=== PATIENT | female | born 1965 | race Asian ===

== ENCOUNTER 2016-07-29 07:57 | Inpatient (IN) | payer BC ==
[2016-07-25 20:13] LABS: BASOPHILS 0.5 %; BASOPHILS ABSOLUTE 0.03 10/3/uL (0.0-0.16); EOSINOPHILS 2.6 %; EOSINOPHILS ABSOLUTE 0.17 10/3/uL (0.0-0.53); HEMATOCRIT 33.8 % (36.0-48.0); HEMOGLOBIN 10.9 g/dL (12.0-16.0); IMMATURE GRANULOCYTES 0.2 %; IMMATURE GRANULOCYTES ABSOLUTE 0.01 10/3/uL (0.0-0.11); LYMPHOCYTES 43.4 %; LYMPHOCYTES ABSOLUTE 2.83 10/3/uL (0.67-4.30); MANUAL DIFF NO %; MEAN CORPUS HGB CONC 32.2 g/dL (32.0-36.0); MEAN CORPUSCULAR HEMOGLOB 29.1 pg (26.0-34.0); MEAN CORPUSCULAR VOLUME 90.1 fL (80-100); MONOCYTES 6.3 %; MONOCYTES ABSOLUTE 0.41 10/3/uL (0.21-1.20); NEUTROPHILS ABSOLUTE 3.07 10/3/uL (2.02-8.40); PLATELET COUNT 370 10/3/uL (150-400); RBC DISTRIBUTION WIDTH 13.6 % (12.0-16.0); RED CELL COUNT 3.75 10/6/uL (4.0-5.6); WHITE BLOOD CELLS 6.5 10/3/uL (4.5-10.5)
[2016-07-25 20:19] LABS: PARTIAL THROMBO TIME 30.3 SEC (22.5-37.2); PROTIME (NOT ORD) 12.8 SEC (12.0-14.5)
[2016-07-25 20:24] LABS: A/G RATIO 1.1 (0.7-1.9); ALBUMIN 3.7 G/DL (3.5-5.0); ALKALINE PHOSPHATASE 88 U/L (45-117); BUN (BLOOD UREA NITROGEN) 12 MG/DL (6-23); CALCIUM, SERUM 8.8 MG/DL (8.5-10.4); CHLORIDE, SERUM 105 MMOL/L (96-112); CO2 (CARBON DIOXIDE) 28 MMOL/L (24-34); CREATININE 0.57 MG/DL (0.55-1.02); GFR AFRICAN AMERICAN 126 ML/MIN (>=60); GFR NON AFRICAN AMERICAN 109 ML/MIN (>=60); GLOBULIN 3.5 G/DL (2.5-4.1); GLUCOSE, SERUM 98 MG/DL (60-99); SGOT(AST) 22 U/L (5-40); SGPT(ALT) 24 U/L (5-65); SODIUM, SERUM 142 MMOL/L (135-148); TOTAL BILIRUBIN 0.2 MG/DL (0-1.2); TOTAL PROTEIN 7.2 G/DL (6.0-8.5)
[2016-07-25 20:28] LABS: CEA 2.5 NG/ML; POTASSIUM, SERUM 4.5 MMOL/L (3.5-5.3)
--- NOTE | ~2016-07-29 | DS ---
Discharge Summary [facility] [address] [place]. [address] NAME: NANCY RAYMOND : 69 STATUS : DIS IN PAT#: [id number] AGE: 51 ADM/REG DATE : 07/29/16 MR#: [id number] REPORT SERV DATE: 08/09/16 DICTATED BY: SHARI BELTRAN III DATE: 08/08/16 REPORT STATUS : Draft TRANSCRIBED BY: MODOseas DATE: 08/08/16 Data Collection from hospitalization DISCHARGE DIAGNOSES: 1. 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 2. Endometriosis. CONSULTATIONS: None. PROCEDURES PERFORMED: 1. Laparoscopic resection of right colon and proximal transverse colon with resection of terminal ileum and primary ileocolonic anastomosis on 07/29/2016. 2. CT scan of the chest with contrast on 07/30/2016. PATHOLOGY: Terminal ileum and right colon, right colectomy - mucinous adenocarcinoma. Colon, additional transverse colon segment - minimal histologic changes. No tumor seen. MEDICATIONS: Tylenol PM one tablet at bedtime as needed, [place] 7.5/325 one tablet every eight hours as needed, melatonin 3 mg at bedtime as needed, and Zofran 4 mg every eight hours as needed. CONDITION AT DISCHARGE: Stable. DISPOSITION: The patient was discharged home on a soft, low-fat, low-residue diet with activities as instructed. She would follow up with me on 08/07/2016. HOSPITAL COURSE: This is a 51-year-old female who was recently found to have a large tumor in the hepatic flexure of the right colon. The patient had complained of an eight-month history of crampy abdominal pain. The pain was associated with bloating. She did have an episode of bright red blood per rectum seven days prior to this admission. Her pain was associated with a 25-pound weight loss over the past seven months. She recently had a colonoscopy, which revealed a large mass at the hepatic flexure. Biopsy showed this to be tubular villous adenoma, but based on the large size of the mass, it was suspected that this may be an invasive malignancy. Treatment options were discussed and it was elected to proceed with surgical intervention. She was admitted to the hospital for further evaluation and treatment. Upon admission, she was taken to the operating room where she underwent the above-mentioned procedure. She tolerated this well, and there were no complications. On postop day #1, she had no new complaints. She was alert and comfortable. She was afebrile. Clear liquids were started. The Thacker catheter was removed. She was evaluated by Physical Therapy. A CT scan of the chest with contrast was performed. There was an irregular soft tissue nodule - question whether this was inflammatory or neoplastic. There were no additional nodules. There was no hilar or mediastinal adenopathy. On postop day #2, she continued to do well. Her abdomen was soft. She remained afebrile. She was placed on full liquids. IV fluids were decreased. The [employer] was discontinued. Discharge planning was performed. On 08/01/2016, she complained of severe back pain. She was tolerating full liquids. She wanted to go home. She has not had a bowel movement. Discharge instructions were given. Discharge Summary [address] [address] NAME: NANCY RAYMOND : 69 STATUS : DIS IN PAT#: [id number] AGE: 51 ADM/REG DATE : 07/29/16 MR#: [id number] REPORT SERV DATE: 08/09/16 DICTATED BY: SHARI BELTRAN III DATE: 08/08/16 REPORT STATUS : Draft TRANSCRIBED BY: MODOseas DATE: 08/08/16 Due to her improved and stable condition, she was discharged home with the above-stated instructions. Information collected by: Bethany Mccracken I submit the above information as my discharge summary. JOSE/NATASHA Shari Beltran III, M.D. / [id number] CC: Shari Beltran III, M.D.
--- NOTE | ~2016-07-29 | OP ---
Record Of Operation [facility] [address] [place]. [address] NAME: NANCY RAYMOND : 69 STATUS : ADM IN PAT#: [id number] AGE: 51 ADM/REG DATE : 07/29/16 MR#: [id number] REPORT SERV DATE: 07/29/16 DICTATED BY: SHARI BELTRAN III DATE: 07/29/16 REPORT STATUS : Draft TRANSCRIBED BY: MODL DATE: 07/29/16 DATE OF PROCEDURE: 07/29/2016 PREOPERATIVE DIAGNOSIS: Mass of the hepatic flexure of the right colon, suspicious for malignancy. 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 PROCEDURE: Laparoscopic resection of right colon and proximal transverse colon with resection of terminal ileum and primary ileocolonic anastomosis. SURGEON: Shari Beltran M.D. ANESTHESIA: General with intubation. COMPLICATIONS: None. ESTIMATED BLOOD LOSS: 25 mL. SPECIMENS: Right colon and proximal transverse colon. LAP AND SPONGE COUNT: Correct x3. DRAINS: [place] in subcutaneous tissue. BRIEF HISTORY: This 51-year-old female presented with a recent colonoscopy showing a large mass at the hepatic flexure. Although the biopsy showed this to be a tubulovillous adenoma, this was a large mass with partial obstruction of the colon and suspicious radiographically and endoscopically for cancer. It was felt that laparoscopic resection of the involved portion of the colon, possible laparotomy, was indicated. This procedure, the risks, benefits, alternatives, including but not limited to the risk for bleeding, infection, enterotomy, injury to any abdominal structure, postop small bowel obstruction, ileus, incisional hernia, dehiscence, anastomotic leak, requiring reoperation with ileostomy, ureteral injury, possible need for laparotomy, and unforeseen complications including deep venous thrombosis, pulmonary embolus, myocardial infarction, stroke, pneumonia, and , were fully and completely explained to the patient and her family at length prior to surgery. The fact that this was a major operation with risk for major morbidity and mortality was explained as well as expected length of recovery with open laparoscopic procedures. The fact that she has had a previous colon resection, we increased the risk for enterotomy or surgical complications and possible need for laparotomy was explained. The patient and family had questions, which were answered. They fully understood the risks and agreed to surgery as planned. FINDINGS: The patient had a large obvious cancer of the hepatic flexure. There was no evidence for carcinomatosis or metastatic disease. Primary resection with clear margins and a primary anastomosis was performed. Record Of Operation [facility] [address] [place]. [address] NAME: NANCY RAYMOND : 69 STATUS : ADM IN [facility]#: [id number] AGE: 51 ADM/REG DATE : 07/29/16 MR#: [id number] REPORT SERV DATE: 07/29/16 DICTATED BY: SHARI BELTRAN III DATE: 07/29/16 REPORT STATUS : Draft TRANSCRIBED BY: NATASHA DATE: 07/29/16 DESCRIPTION OF PROCEDURE: After being properly identified and after discussing risks of surgery with the patient and family again in the preoperative area and after an appropriate bowel preparation at home, the patient was taken to the operating room and placed in the supine position on the operating room table. General anesthesia was administered. She was intubated without difficulty. A Thacker catheter was inserted. The abdomen was prepped and draped sterilely in the usual fashion. After an appropriate "time-out" per JCAHO standards, a small transverse incision was made just below the xiphoid process. The incision was continued through subcutaneous tissue. Hemostasis was controlled with cautery. The incision was continued through the fascia. The peritoneal cavity was entered under direct vision. A #10 balloon-tipped Origin trocar was placed under direct vision into the peritoneal cavity. The balloon was inflated. The abdominal cavity was then insufflated to about 13 mmHg with carbon dioxide. The laparoscope was placed through the trocar. There was noted to be a line of adhesions between the omentum and the underside of the abdominal wall beneath the previous midline incision, which extended from the pubis to the xiphoid process. A 5 mm trocar was then placed to the left of the midline, in the left lower quadrant, under direct vision with the laparoscope. An instrument was placed through this, and using sharp dissection, the adhesions between the omentum and the underside of the fascia were carefully divided. In this way, we were able to expose the upper abdomen and the right side of the abdomen. There was noted to be a loop of small bowel adherent to the fascia posteriorly in the lower abdomen. We were very careful and mindful of this. We took great care not to injure this bowel and it was not necessary to mobilize it because it was not interfering with our dissection. This loop of small bowel appeared to be densely adherent to the underside of the abdominal wall. This appeared to be a chronic process and it was felt that it was not necessary to separate this bowel from the abdominal wall. Another 5 mm trocar was then placed in the midline, midway between the umbilicus and pubis, under direct vision with the laparoscope. Finally, a supraumbilical 10 mm trocar was placed under direct vision with the laparoscope. Appropriate instruments were placed through the trocars. The abdomen was inspected. There was no evidence of carcinomatosis or peritoneal implants. We turned our attention to the right colon. The right colon was grasped and retracted medially. Using sharp dissection, peritoneal reflection of the right colon was divided from the along the line of Toldt, from the proximal colon to the hepatic flexure. The colo- hepatic ligament was divided. The tumor was identified at the hepatic flexure. It was identified as a mass, which we could visualize and palpate. It was not marked. After full mobilization of the hepatic flexure, a small right subcostal incision was made directly over the hepatic flexure. The incision was continued through subcutaneous tissue. Hemostasis was controlled with cautery. The incision was continued through all layers of fascia. The abdominal cavity was entered. The right colon was mobilized into the wound. The gallbladder appeared to be normal. The liver appeared to be normal with no evidence for carcinomatosis or metastatic disease. Record Of Operation [id number] [place]. [address] NAME: NANCY RAYMOND : 69 STATUS : ADM IN [facility]#: [id number] AGE: 51 ADM/REG DATE : 07/29/16 MR#: [id number] REPORT SERV DATE: 07/29/16 DICTATED BY: SHARI BELTRAN III DATE: 07/29/16 REPORT STATUS : Draft TRANSCRIBED BY: MODL DATE: 07/29/16 There was a large, hard, obvious malignancy, palpable in the hepatic flexure. We selected a point for division of the terminal ileum proximal to this junction with the colon. There appeared to be a previous anastomosis between the terminal ileum and the right colon. The patient had a history of a previous colon resection and appeared that a portion of the right colon had been removed with an anastomosis between the terminal ileum and the right colon. We selected a point for division of terminal ileum just proximal to this anastomosis. A LEIGHTON stapler was used about the ileum at this point. We then selected a point for division of the proximal transverse colon, beyond the tumor, and beyond the hepatic flexure. A LEIGHTON stapler used about the colon at this point. The mesentery to the right colon was then divided using Harmonic scalpel. This was done along the base of the mesentery so as to perform a correct oncologic dissection of the lymphovascular supply to the right colon. We identified the second and third portion of the duodenal. These were not encroached upon or injured. We also identified the right ureter, which was not encroached upon or injured. This way, the entire right colon was removed. It was sent to pathology and interpreted as containing the tumor with clear margins. In order to facilitate our anastomosis, we resected another 2 cm to 3 cm of the proximal transverse colon. This was sent separately for permanent biopsy and the distal end was marked with a suture. We then performed a [id number] anastomosis between the divided terminal ileum and midtransverse colon. This was performed by aligning the antimesenteric border of the small bowel and antimesenteric border of the colon with interrupted 3-0 silk sutures. A small opening was then made in the antimesenteric border of the small bowel and the corresponding antimesenteric border of the colon. A LEIGHTON stapler was placed through this and fired. The defect created by the stapler was closed with a TA-60 stapler. This staple line was oversewn with interrupted 3-0 silk sutures. The "crotch" anastomosis was secured with 3-0 silk sutures. Upon completion of this, the anastomosis was widely patent to palpation. It was not twisted or kinked in anyway and was not under any tension. The mesenteric defect was closed with a running 3-0 silk suture. The area was irrigated copiously with saline. Hemostasis was assured. The fascia at this incision was closed with a running looped #1 PDS suture in two layers. The subcutaneous tissue was closed with running 3-0 chromic suture and the skin was closed with running subcuticular 4-0 Monocryl stitch. All trocars were removed. The 10 mm trocar sites were closed by closing the fascia with interrupted 0 Vicryl sutures. The skin incisions were all closed with running subcuticular 4-0 Monocryl stitches. They were injected with 0.5% Marcaine. Dressings were applied. Anesthesia was reversed. The patient was taken recovery room in stable condition. She tolerated the procedure well. Her family was informed results of surgery. The patient will remain in the hospital for postoperative care. DARRIAN/NATASHA Shari Beltran III, M.D. Record Of Operation [address] [address] NAME: NANCY RAYMOND : 69 STATUS : ADM IN [facility]#: [id number] AGE: 51 ADM/REG DATE : 07/29/16 MR#: [id number] REPORT SERV DATE: 07/29/16 DICTATED BY: SHARI BELTRAN III DATE: 07/29/16 REPORT STATUS : Draft TRANSCRIBED BY: NATASHA DATE: 07/29/16 / [id number] CC: Shari Beltran III, M.D.
--- NOTE | ~2016-07-29 | PREOPHP ---
PreOp History and Physical [place] [facility] [place]. [address] NAME: NANCY RAYMOND : 69 STATUS : ADM IN PAT#: [id number] AGE: 51 ADM/REG DATE : 07/29/16 MR#: [id number] REPORT SERV DATE: 07/29/16 DICTATED BY: SHARI BELTRAN III DATE: 07/23/16 REPORT STATUS : Draft TRANSCRIBED BY: MODL DATE: 07/23/16 HISTORY OF PRESENT ILLNESS: This 51-year-old female comes to the operating for laparoscopic partial colectomy, possible laparotomy. The patient was recently found to have a large tumor in the hepatic flexure of the right colon. The patient complains of an eight-month history of crampy abdominal pain. This pain is associated with bloating. The patient has had an episode of bright red blood per rectum seven days ago. This pain has been associated with a 25-pound weight loss over the last seven months. The patient recently had a colonoscopy, which shows a large mass at the hepatic flexure. Biopsy shows this to be a tubular villous adenoma, but based on the large size of the mass, it is suspected this may be an invasive malignancy. The patient comes now for laparoscopic resection of the involved portion of the colon, possible laparotomy. PAST MEDICAL HISTORY: 1. History of a previous colon resection for endometriosis. 2. History of endometriosis. PAST SURGICAL HISTORY: Includes partial colectomy, hysterectomy, and appendectomy. FAMILY HISTORY: Positive for gastric cancer. SOCIAL HISTORY: No history of tobacco or alcohol use. ALLERGIES: NONE. REVIEW OF SYSTEMS: Other than the above, the patient's 14-point review of systems is unremarkable. OBJECTIVE PHYSICAL EXAM: GENERAL: Reveals a thin female in no acute distress. She is alert and oriented x3. VITAL SIGNS: Blood pressure 99/64, pulse 81, temperature 98.3. HEENT: Unremarkable. Cranial nerves 2 through 12 were normal. LUNGS: Clear. CARDIAC: Normal. ABDOMEN: Soft and nontender. No masses. EXTREMITIES: Normal with no edema. LABORATORY DATA: Recent CT scan of the abdomen and pelvis shows a nodule at the left lung base, for which a three-month CT scan followup is recommended. There is noted to be a mass in the ascending colon close to the hepatic flexure. This is an apple core type lesion in the mid ascending colon. There is no evidence for metastatic disease. Biopsy of this mass shows a tubulovillous adenoma ulcerated and fragmented representing superficial fragments. Recent colonoscopy shows a large ulcerated circumferential tumor in the ascending colon. PreOp History and Physical [address] [place]. [address] NAME: NANCY RAYMOND : 69 STATUS : ADM IN PAT#: [id number] AGE: 51 ADM/REG DATE : 07/29/16 MR#: [id number] REPORT SERV DATE: 07/29/16 DICTATED BY: SHARI BELTRAN III DATE: 07/23/16 REPORT STATUS : Draft TRANSCRIBED BY: NATASHA DATE: 07/23/16 ASSESSMENT: 1. A 51-year-old female with right colon mass, probable malignancy. 2. Previous history of partial colon resection, of uncertain location, related to endometrial disease in the past. PLAN: The patient comes to the operating room now for laparoscopic resection of the involved portion of the right colon, possible laparotomy. This procedure, the risks, benefits, and alternatives, including, but not limited to the risk for bleeding, infection, enterotomy, injury to any abdominal structure, postop small bowel obstruction, ileus, incisional hernia, dehiscence, anastomotic leak requiring reoperation with ileostomy or colostomy, ureteral injury, possible need for laparotomy, and unforeseen complications including deep venous thrombosis, pulmonary embolus, myocardial infarction, stroke, pneumonia, and , have been fully and completely explained to the patient and family at length prior to surgery. The fact that this is a major operation with risk for major morbidity and mortality has been explained. The expected length of recovery with both open and laparoscopic procedures has been explained. The fact that she has increased risk for possible need for laparotomy due to her previous abdominal surgery has been explained. The patient's questions have been answered. She clearly understands the risks and agrees to surgery as planned. DARRIAN/NATASHA Shari Beltran III, M.D. / [id number]
[~2016-07-29 07:57] MED LIST: MELA3 PO; TYLENOL PM PO
[2016-07-30 06:30] LABS: BASOPHILS 0 %; EOSINOPHILS 0 %; HEMATOCRIT 29.5 % (36.0-48.0); IMMATURE GRANULOCYTES 0.3 %; IMMATURE GRANULOCYTES ABSOLUTE 0.05 10/3/uL (0.0-0.11); LYMPHOCYTES 8.5 %; LYMPHOCYTES ABSOLUTE 1.32 10/3/uL (0.67-4.30); MANUAL DIFF NO %; MEAN CORPUS HGB CONC 33.9 g/dL (32.0-36.0); MEAN CORPUSCULAR HEMOGLOB 29.5 pg (26.0-34.0); MEAN PLATELET VOLUME 9.4 fL (9.2-13.0); MONOCYTES ABSOLUTE 0.93 10/3/uL (0.21-1.20); NEUTROPHILS 85.2 %; NEUTROPHILS ABSOLUTE 13.23 10/3/uL (2.02-8.40); PLATELET COUNT 294 10/3/uL (150-400); RBC DISTRIBUTION WIDTH 13.2 % (12.0-16.0); RED CELL COUNT 3.39 10/6/uL (4.0-5.6); WHITE BLOOD CELLS 15.5 10/3/uL (4.5-10.5)
[2016-07-30 06:46] LABS: CHLORIDE, SERUM 101 MMOL/L (96-112); CO2 (CARBON DIOXIDE) 25 MMOL/L (24-34); CREATININE 0.64 MG/DL (0.55-1.02); GFR AFRICAN AMERICAN 121 ML/MIN (>=60); GFR NON AFRICAN AMERICAN 105 ML/MIN (>=60); POTASSIUM, SERUM 3.8 MMOL/L (3.5-5.3); SGOT(AST) 23 U/L (5-40); SGPT(ALT) 26 U/L (5-65); SODIUM, SERUM 136 MMOL/L (135-148); TOTAL BILIRUBIN 0.5 MG/DL (0-1.2); TOTAL PROTEIN 5.8 G/DL (6.0-8.5)
[2016-07-30 06:47] LABS: A/G RATIO 0.9 (0.7-1.9); ALBUMIN 2.7 G/DL (3.5-5.0); ALKALINE PHOSPHATASE 52 U/L (45-117); BUN (BLOOD UREA NITROGEN) 5 MG/DL (6-23); CALCIUM, SERUM 7.7 MG/DL (8.5-10.4); GLOBULIN 3.1 G/DL (2.5-4.1); GLUCOSE, SERUM 156 MG/DL (60-99)
[2016-07-31 06:21] LABS: BASOPHILS 0 %; EOSINOPHILS 0.1 %; EOSINOPHILS ABSOLUTE 0.01 10/3/uL (0.0-0.53); HEMATOCRIT 28.7 % (36.0-48.0); HEMOGLOBIN 9.8 g/dL (12.0-16.0); IMMATURE GRANULOCYTES 0.2 %; IMMATURE GRANULOCYTES ABSOLUTE 0.02 10/3/uL (0.0-0.11); LYMPHOCYTES 15.9 %; LYMPHOCYTES ABSOLUTE 1.76 10/3/uL (0.67-4.30); MEAN CORPUS HGB CONC 34.1 g/dL (32.0-36.0); MEAN CORPUSCULAR VOLUME 87.8 fL (80-100); MEAN PLATELET VOLUME 9.3 fL (9.2-13.0); MONOCYTES 8.1 %; MONOCYTES ABSOLUTE 0.89 10/3/uL (0.21-1.20); NEUTROPHILS 75.7 %; NEUTROPHILS ABSOLUTE 8.37 10/3/uL (2.02-8.40); PLATELET COUNT 281 10/3/uL (150-400); RBC DISTRIBUTION WIDTH 13.5 % (12.0-16.0); RED CELL COUNT 3.27 10/6/uL (4.0-5.6); WHITE BLOOD CELLS 11.1 10/3/uL (4.5-10.5)
[2016-07-31 06:22] LABS: MANUAL DIFF NO %
[2016-07-31 06:37] LABS: BUN (BLOOD UREA NITROGEN) 3 MG/DL (6-23); CALCIUM, SERUM 8.2 MG/DL (8.5-10.4); CHLORIDE, SERUM 104 MMOL/L (96-112); CO2 (CARBON DIOXIDE) 29 MMOL/L (24-34); CREATININE 0.54 MG/DL (0.55-1.02); GFR AFRICAN AMERICAN 128 ML/MIN (>=60); GFR NON AFRICAN AMERICAN 111 ML/MIN (>=60); POTASSIUM, SERUM 3.9 MMOL/L (3.5-5.3); SODIUM, SERUM 139 MMOL/L (135-148)
[2016-07-31 06:38] LABS: GLUCOSE, SERUM 104 MG/DL (60-99)
[2016-08-01] MEDS ORDERED: ZOFRAN4 PO (09:25)
[2016-08-01] MEDS ORDERED: NORCO1 TA2 PO (09:26)
[2016-08-01 09:48] LABS: BASOPHILS 0 %; EOSINOPHILS 0 %; HEMATOCRIT 31.5 % (36.0-48.0); HEMOGLOBIN 10.6 g/dL (12.0-16.0); IMMATURE GRANULOCYTES 0.1 %; IMMATURE GRANULOCYTES ABSOLUTE 0.01 10/3/uL (0.0-0.11); LYMPHOCYTES 9.9 %; LYMPHOCYTES ABSOLUTE 0.89 10/3/uL (0.67-4.30); MANUAL DIFF NO %; MEAN CORPUS HGB CONC 33.7 g/dL (32.0-36.0); MEAN CORPUSCULAR HEMOGLOB 29.5 pg (26.0-34.0); MEAN CORPUSCULAR VOLUME 87.7 fL (80-100); MEAN PLATELET VOLUME 9.6 fL (9.2-13.0); MONOCYTES 4.2 %; MONOCYTES ABSOLUTE 0.38 10/3/uL (0.21-1.20); NEUTROPHILS 85.8 %; NEUTROPHILS ABSOLUTE 7.69 10/3/uL (2.02-8.40); PLATELET COUNT 318 10/3/uL (150-400); RBC DISTRIBUTION WIDTH 13.5 % (12.0-16.0); RED CELL COUNT 3.59 10/6/uL (4.0-5.6)
[2016-08-01 10:02] LABS: BUN (BLOOD UREA NITROGEN) 6 MG/DL (6-23); CALCIUM, SERUM 8.7 MG/DL (8.5-10.4); CHLORIDE, SERUM 103 MMOL/L (96-112); CO2 (CARBON DIOXIDE) 29 MMOL/L (24-34); CREATININE 0.52 MG/DL (0.55-1.02); GFR AFRICAN AMERICAN 130 ML/MIN (>=60); GFR NON AFRICAN AMERICAN 112 ML/MIN (>=60); POTASSIUM, SERUM 4.1 MMOL/L (3.5-5.3); SODIUM, SERUM 138 MMOL/L (135-148)
[2016-08-01 10:03] LABS: GLUCOSE, SERUM 138 MG/DL (60-99)
[2016-12-04] MEDS ORDERED: PROTONIX PO (08:38)
[2016-12-10] MEDS ORDERED: PERCOCET 7.5/321 TAB PO (08:08)
== END 2016-08-01 10:29 | disposition home or self-care (01) | DRG 331 ==
LOC: SDC/OF 07:57 → PACU 12:41 → 5SO 14:13
PROVIDERS: Surgery
PROC: 0DBL4ZZ Excision of Transverse Colon, Percutaneous Endoscopic Approach (ICD-10-PCS; 2016-07-29)
PROC: 0DBK4ZZ Excision of Ascending Colon, Percutaneous Endoscopic Approach (ICD-10-PCS; principal; 2016-07-29 10:15)
DX: C18.2 Malignant neoplasm of ascending colon (principal); Z80.0 Family history of malignant neoplasm of digestive organs; Z90.49 Acquired absence of other specified parts of digestive tract; Z98.890 Other specified postprocedural states; Z90.710 Acquired absence of both cervix and uterus
CPT/HCPCS: 36415; 71020; 71260; 80048; 80053; 82378; 85025; 85610; 85730; 86850; 86900; 86901; 88304; 88307; 88309; 88341; 88342; 93005; 97161-GP; A9270-GY; C9113; J0690; J2250; J2270; J2405; J2710; J2795; J3010; Q9967

== ENCOUNTER 2016-08-02 04:24 | Inpatient (IN) | payer BC ==
--- NOTE | ~2016-08-02 | HP ---
History And Physical [place] [address] [place]. [address] NAME: NANCY RAYMOND : 69 STATUS : ADM Cristopher PAT#: [id number] AGE: 51 ADM/REG DATE : 08/02/16 MR#: [id number] REPORT SERV DATE: 08/03/16 DICTATED BY: SHARI BELTRAN III DATE: 08/03/16 REPORT STATUS : Draft TRANSCRIBED BY: MODL DATE: 08/03/16 DATE OF ADMISSION: 08/02/2016 HISTORY OF PRESENT ILLNESS: This 51-year-old female was admitted to the hospital emergently with nausea and vomiting. The patient complains of a one-day history of nausea and vomiting. These symptoms became progressively worse. The patient presented to the emergency room, and was found to have evidence for an ileus or partial small bowel obstruction. An NG tube was placed, and she feels much better. The patient is status post a laparoscopic right colectomy performed for a large right colon cancer. This surgery was performed on 07/29/2016. The patient's postoperative course was quick and uneventful. On the day of discharge, she was tolerating diet well and passing stool. The patient's symptoms began in the day of admission. PAST MEDICAL HISTORY: 1. History of right colon cancer, stage IIA, status post laparoscopic right colectomy performed on 07/29/2016. 2. History of anemia related to #1. 3. History of endometriosis. 4. History of previous colon resection for endometriosis. FAMILY HISTORY: Positive for gastric cancer. SOCIAL HISTORY: No history of tobacco or alcohol use. The patient is . She lives locally. ALLERGIES: NONE. MEDICATIONS: As per the medication list. REVIEW OF SYSTEMS: The patient's 14-point review of systems was otherwise unremarkable. PHYSICAL EXAMINATION: GENERAL: This is a female, in no acute distress. She is alert and oriented x3. VITAL SIGNS: Blood pressure 96/56, temperature 98.1, and pulse 79. HEENT: Unremarkable. Cranial nerves 2 through 12 are normal. LUNGS: Clear. CARDIAC: Unremarkable. ABDOMEN: Soft, slightly distended. She has a well-healed incision in the upper abdomen. EXTREMITIES: Normal with no edema. LABORATORY DATA: CT scan of the abdomen and pelvis which I reviewed shows evidence for partial small bowel obstruction versus ileus. The patient's electrolytes are normal. History And Physical [address] [place]. [address] NAME: NANCY RAYMOND : 69 STATUS : ADM Cristopher PAT#: [id number] AGE: 51 ADM/REG DATE : 08/02/16 MR#: [id number] REPORT SERV DATE: 08/03/16 DICTATED BY: SHARI BELTRAN III DATE: 08/03/16 REPORT STATUS : Draft TRANSCRIBED BY: NATASHA DATE: 08/03/16 ASSESSMENT: 1. 51-year-old female with probable postop ileus. 2. Status post laparoscopic right colectomy performed for a stage IIA right colon cancer. PLAN: The patient will be admitted and star on parenteral fluids, bowel rest, and NG suction. I have discussed this with the patient and her family. I have explained to the patient and the family that about 80% of time these will resolve without operative treatment. Occasionally; however, surgical intervention will be required if it does not respond to nonoperative management including several days of bowel rest with NG suction. This plan has been explained to the patient and her family. Their questions have been answered. They understand and agree to this as planned. DARRIAN/NATASHA Shari Beltran III, M.D. / [id number] CC: Shari Beltran III, M.D.
--- NOTE | ~2016-08-02 | DS ---
Discharge Summary [facility] [address] [place] [place]. [address] NAME: NANCY RAYMOND : 69 STATUS : DIS IN PAT#: [id number] AGE: 51 ADM/REG DATE : 08/02/16 MR#: [id number] REPORT SERV DATE: 08/16/16 DICTATED BY: SHARI BELTRAN III DATE: 08/15/16 REPORT STATUS : Draft TRANSCRIBED BY: MODOseas DATE: 08/15/16 Data Collection from hospitalization DISCHARGE DIAGNOSES: 1. Ileus - resolving - or partial small bowel obstruction. 2. History of right colon cancer stage IIA. 3. History of anemia. 4. History of endometriosis. CONSULTATIONS: None. PROCEDURES PERFORMED: CT scan of the abdomen and pelvis without contrast on 08/02/2016. MEDICATIONS: ( ) ( ) CONDITION AT DISCHARGE: Stable. DISPOSITION: The patient was discharged home on a soft diet with activities as instructed. She would follow up with me on 08/21/2016. HOSPITAL COURSE: This is a 51-year-old female who presented to the hospital emergently with nausea and vomiting. She had complained of a one-day history of nausea and vomiting. These symptoms became progressively worse. In the emergency room, she was found to have evidence of an ileus or partial small bowel obstruction. NG tube was placed and she felt much better. She is status post laparoscopic right colectomy for a large right colon cancer performed on 07/29/2016. Her postoperative course had been quick and uneventful. On the day of discharge, she was tolerating her diet well and passing stool. She was admitted to the hospital at this time for further evaluation and treatment. Upon admission, a CT scan of the abdomen and pelvis showed evidence for partial small bowel obstruction versus ileus. Her electrolytes were normal. Parenteral fluids were started as well as bowel rest and NG suction. On 08/04/2016, she was feeling much better. She was passing gas and stool per rectum. Her ileus was improving. NG tube was removed. Clear liquids were started. Discharge planning was performed. On 08/05/2016, she was feeling much better. She wanted to go home. She was tolerating liquids. Discharge instructions were given. Her diet was advanced. IV fluids had been decreased. Due to her improved and stable condition, she was discharged home with the above-stated instructions. Information collected by: Bethany Mccracken I submit the above information as my discharge summary. JOSE/NATASHA Shari Beltran III, M.D. / [id number] Discharge Summary [address] [address] NAME: NANCY RAYMOND : 69 STATUS : DIS IN PAT#: [id number] AGE: 51 ADM/REG DATE : 08/02/16 MR#: [id number] REPORT SERV DATE: 08/16/16 DICTATED BY: SHARI BELTRAN III DATE: 08/15/16 REPORT STATUS : Draft TRANSCRIBED BY: NATASHA DATE: 08/15/16 CC: Shari Beltran III, M.D.
[2016-08-02 04:04] LABS: BASOPHILS 0 %; EOSINOPHILS 0.1 %; EOSINOPHILS ABSOLUTE 0.01 10/3/uL (0.0-0.53); ER CBC TAT 0 Hrs 10 Mins; HEMATOCRIT 33.1 % (36.0-48.0); HEMOGLOBIN 11.5 g/dL (12.0-16.0); IMMATURE GRANULOCYTES 0.3 %; IMMATURE GRANULOCYTES ABSOLUTE 0.03 10/3/uL (0.0-0.11); LYMPHOCYTES 15.4 %; LYMPHOCYTES ABSOLUTE 1.42 10/3/uL (0.67-4.30); MEAN CORPUS HGB CONC 34.7 g/dL (32.0-36.0); MEAN CORPUSCULAR HEMOGLOB 29.4 pg (26.0-34.0); MEAN PLATELET VOLUME 9.5 fL (9.2-13.0); MONOCYTES 6.4 %; MONOCYTES ABSOLUTE 0.59 10/3/uL (0.21-1.20); NEUTROPHILS 77.8 %; NEUTROPHILS ABSOLUTE 7.19 10/3/uL (2.02-8.40); PLATELET COUNT 392 10/3/uL (150-400); RBC DISTRIBUTION WIDTH 13.2 % (12.0-16.0); RED CELL COUNT 3.91 10/6/uL (4.0-5.6); WHITE BLOOD CELLS 9.2 10/3/uL (4.5-10.5)
[2016-08-02 04:07] LABS: MANUAL DIFF NO %; MEAN CORPUSCULAR VOLUME 84.7 fL (80-100)
[2016-08-02 04:11] LABS: PARTIAL THROMBO TIME 28.2 SEC (22.5-37.2); PROTIME (NOT ORD) 12.7 SEC (12.0-14.5)
[2016-08-02 04:21] LABS: CALCIUM, SERUM 8.7 MG/DL (8.5-10.4); CHLORIDE, SERUM 94 MMOL/L (96-112); CO2 (CARBON DIOXIDE) 29 MMOL/L (24-34); CREATININE 0.57 MG/DL (0.55-1.02); DIRECT BILIRUBIN 0.1 MG/DL (0.0-0.4); GFR AFRICAN AMERICAN 126 ML/MIN (>=60); GFR NON AFRICAN AMERICAN 109 ML/MIN (>=60); GLUCOSE, SERUM 117 MG/DL (60-99); INDIRECT BILIRUBIN(NOT ORDER) 0.4 MG/DL (0.1-0.9); POTASSIUM, SERUM 3.5 MMOL/L (3.5-5.3); SGOT(AST) 17 U/L (5-40); SGPT(ALT) 21 U/L (5-65); TOTAL BILIRUBIN 0.5 MG/DL (0-1.2)
[2016-08-02 04:22] LABS: A/G RATIO 0.7 (0.7-1.9); ALKALINE PHOSPHATASE 64 U/L (45-117); BUN (BLOOD UREA NITROGEN) 10 MG/DL (6-23); GLOBULIN 4.3 G/DL (2.5-4.1); SODIUM, SERUM 131 MMOL/L (135-148); TOTAL PROTEIN 7.3 G/DL (6.0-8.5)
[~2016-08-02 04:24] MED LIST changes: +NORCO1 TA2 PO; +ZOFRAN4 PO
[2016-08-02 04:28] LABS: LACTATE 0.8 MMOL/L (0.3-2.4)
[2016-08-02 09:43] LABS: WBC (NOT ORDERED) (RFLEX) 0 (0-5)
[2016-08-02 10:08] LABS: ASCORBIC ACID (UR NOT ORDER) NEG (NEG); BILIRUBIN, URINE NEGATIVE (NEG); ER URINALYSIS TAT 0 Hrs 26 Mins; KETONE, URINE TRACE MG/DL (NEG); LEUKOCYTE ESTERASE(NOT OR NEG (NEG); NITRITE (URINE) NEG (NEG)
[2016-08-03 05:40] LABS: HEMOGLOBIN 9.2 g/dL (12.0-16.0); MEAN CORPUS HGB CONC 33.3 g/dL (32.0-36.0); MEAN CORPUSCULAR HEMOGLOB 28.8 pg (26.0-34.0); MEAN CORPUSCULAR VOLUME 86.3 fL (80-100); MEAN PLATELET VOLUME 8.7 fL (9.2-13.0); PLATELET COUNT 328 10/3/uL (150-400); RBC DISTRIBUTION WIDTH 13.4 % (12.0-16.0); WHITE BLOOD CELLS 5.8 10/3/uL (4.5-10.5)
[2016-08-03 05:42] LABS: HEMATOCRIT 27.6 % (36.0-48.0); MANUAL DIFF YES %
[2016-08-03 05:58] LABS: CALCIUM, SERUM 8.4 MG/DL (8.5-10.4); CHLORIDE, SERUM 107 MMOL/L (96-112); CO2 (CARBON DIOXIDE) 27 MMOL/L (24-34); CREATININE 0.55 MG/DL (0.55-1.02); GFR AFRICAN AMERICAN 128 ML/MIN (>=60); GFR NON AFRICAN AMERICAN 110 ML/MIN (>=60); GLUCOSE, SERUM 117 MG/DL (60-99); POTASSIUM, SERUM 3.2 MMOL/L (3.5-5.3)
[2016-08-03 06:00] LABS: BUN (BLOOD UREA NITROGEN) 5 MG/DL (6-23); SODIUM, SERUM 143 MMOL/L (135-148)
[2016-12-04] MEDS ORDERED: PROTONIX PO (08:38)
[2016-12-10] MEDS ORDERED: PERCOCET 7.5/321 TAB PO (08:08)
== END 2016-08-05 12:36 | disposition home or self-care (01) | DRG 394 ==
LOC: ER 04:24 → CDU1 05:27 → 5SO 08-03 15:36
PROVIDERS: Nurse Practitioner; Surgery
DX: K91.89 Other postprocedural complications and disorders of digestive system (principal); K56.7 Ileus, unspecified; Z85.038 Personal history of other malignant neoplasm of large intestine; Z90.49 Acquired absence of other specified parts of digestive tract; Z98.890 Other specified postprocedural states; Z80.0 Family history of malignant neoplasm of digestive organs; Z79.899 Other long term (current) drug therapy
CPT/HCPCS: 74020; 74176; 80048; 80053; 81001; 82248; 83605; 83690; 84132; 85025; 85610; 85730; 87045; 87046; 87046-59; 87899; 87899-59; 93005; 96372; 99285; A9270-GY; J2405